=== PATIENT | female | born 1985 | race Caucasian/White ===

== ENCOUNTER 2016-09-25 19:32 | Emergency (ER) | payer BC ==
[2013-01-01 16:57] VITALS: BMI 41.6
== END 2016-09-25 21:05 | disposition home or self-care (01) ==
LOC: D.ER 19:32
DX: T36.0X5A Adverse effect of penicillins, initial encounter (principal); Y92.019 Unspecified place in single-family (private) house as the place of occurrence of the external cause; H66.92 Otitis media, unspecified, left ear; F41.9 Anxiety disorder, unspecified; F17.200 Nicotine dependence, unspecified, uncomplicated

== ENCOUNTER 2016-11-21 21:05 | Emergency (ER) | payer BC | END 2016-11-22 00:15 | disposition home or self-care (01) | LOC: D.ER 21:05 | DX: G51.0 Bell's palsy (principal); F41.9 Anxiety disorder, unspecified; F17.200 Nicotine dependence, unspecified, uncomplicated ==

== ENCOUNTER 2017-01-30 12:09 | Emergency (ER) | payer BC ==
[2013-01-01 16:57] VITALS: BMI 41.6
== END 2017-01-30 14:26 | disposition home or self-care (01) ==
LOC: D.ER 12:09
DX: M54.5 Low back pain (principal); S39.012A Strain of muscle, fascia and tendon of lower back, initial encounter; W18.30XA Fall on same level, unspecified, initial encounter; M62.830 Muscle spasm of back

== ENCOUNTER → 2017-02-03 12:22 | Outpatient (CLI) | payer BC ==
[2013-01-01 16:57] VITALS: BMI 41.6
== END | disposition home or self-care (01) ==
LOC: D.CT 12:22
DX: R10.9 Unspecified abdominal pain (principal)

== ENCOUNTER 2017-02-25 19:55 | Emergency (ER) | payer BC ==
[2013-01-01 16:57] VITALS: BMI 41.6
== END 2017-02-25 22:21 | disposition home or self-care (01) ==
LOC: D.ER 19:55
DX: S16.1XXA Strain of muscle, fascia and tendon at neck level, initial encounter (principal); X58.XXXA Exposure to other specified factors, initial encounter; Y93.89 Activity, other specified; Y92.89 Other specified places as the place of occurrence of the external cause; M62.838 Other muscle spasm

== ENCOUNTER → 2017-03-23 16:12 | Outpatient (CLI) | payer BC ==
[2013-01-01 16:57] VITALS: BMI 41.6
== END | disposition home or self-care (01) ==
LOC: D.MRI 08:30
DX: M54.2 Cervicalgia (principal)

== ENCOUNTER → 2017-05-27 16:25 | Outpatient (CLI) | payer BC ==
[2013-01-01 16:57] VITALS: BMI 41.6
== END | disposition home or self-care (01) ==
LOC: D.CT 05-26 16:00
DX: R10.9 Unspecified abdominal pain (principal)

== ENCOUNTER 2017-07-09 12:57 | Emergency (ER) | payer BC ==
[2013-01-01 16:57] VITALS: BMI 41.6
[2017-07-09 14:15] LABS: APTT 26.7 SECONDS (22.8-39.4); INR 0.97 (0.85-1.17); PROTIME 12.7 SECONDS (11.6-15.0)
[2017-07-09 15:35] LABS: BASOPHILS 0.9 % (0-2); EOSINOPHILS 1.5 % (0-7); HEMATOCRIT 44.2 % (36.0-48.0); HEMOGLOBIN 14.6 g/dL (12-16); IMMATURE GRANULOCYTES 0.2 % (0-5); LYMPHOCYTES 26.6 % (15-50); MCH 30.2 pg (26.0-34.0); MCV 91.3 fL (80.0-100.0); MEAN PLATELET VOLUME 11.5 fL (7.4-10.4); MONOCYTES 7.5 % (2-11); NEUTROPHILS 63.3 % (40-80); PLATELET COUNT 294 10x3/uL (130-400); RBC 4.84 10x6/uL (4.00-5.40); RDW 14.3 % (11.5-14.5); WBC 5.8 10x3/uL (4.8-10.8)
[2017-07-09 15:44] LABS: ALBUMIN 3.9 g/dL (3.4-5.0); ANION GAP 11.3 mmol/L (8-16); BILIRUBIN - TOTAL 0.13 mg/dL (0.2-1.3); CALCIUM 8.6 mg/dL (8.5-10.1); CARBON DIOXIDE 26.5 mmol/L (21.0-32.0); CREATININE - SERUM 1.1 mg/dL (0.6-1.3); POTASSIUM - SERUM 3.8 mmol/L (3.5-5.1); PROTEIN - SERUM 8.3 g/dL (6.4-8.2)
== END 2017-07-09 16:49 | disposition home or self-care (01) ==
LOC: D.ER 12:57
PROVIDERS: Family Medicine; Nurse Practitioner Family
DX: M79.662 Pain in left lower leg (principal); Z86.718 Personal history of other venous thrombosis and embolism

== ENCOUNTER → 2017-08-30 13:39 | Outpatient (CLI) | payer BC ==
[2013-01-01 16:57] VITALS: BMI 41.6
== END | disposition home or self-care (01) ==
LOC: D.US 13:39
DX: E04.9 Nontoxic goiter, unspecified (principal)

== ENCOUNTER 2017-09-27 19:02 | Emergency (ER) | payer BC ==
[2013-01-01 16:57] VITALS: BMI 41.6
== END 2017-09-27 21:25 | disposition home or self-care (01) ==
LOC: D.ER 19:02
DX: S27.818A Other injury of esophagus (thoracic part), initial encounter (principal); X58.XXXA Exposure to other specified factors, initial encounter; Y93.89 Activity, other specified; Y92.019 Unspecified place in single-family (private) house as the place of occurrence of the external cause; F17.200 Nicotine dependence, unspecified, uncomplicated

== ENCOUNTER 2017-11-06 22:04 | Emergency (ER) | payer BC ==
[2013-01-01 16:57] VITALS: BMI 41.6
[2017-11-06 22:41] LABS: BASOPHILS 0.3 % (0-2); EOSINOPHILS 1.8 % (0-7); HEMOGLOBIN 13.4 g/dL (12-16); IMMATURE GRANULOCYTES 0.3 % (0-5); LYMPHOCYTES 32.5 % (15-50); MCH 29.5 pg (26.0-34.0); MCHC 33.5 g/dL (31.0-37.0); MCV 88.1 fL (80.0-100.0); MEAN PLATELET VOLUME 10.3 fL (7.4-10.4); MONOCYTES 4.6 % (2-11); NEUTROPHILS 60.5 % (40-80); PLATELET COUNT 277 10x3/uL (130-400); RBC 4.54 10x6/uL (4.00-5.40); RDW 15.1 % (11.5-14.5); WBC 10.8 10x3/uL (4.8-10.8)
[2017-11-06 22:49] LABS: APPEARANCE HAZY (CLEAR); BACTERIA NONE SEEN /hpf (NONE SEEN); BILIRUBIN NEGATIVE (NEGATIVE); COLOR YELLOW (YELLOW); GLUCOSE NEGATIVE (NEGATIVE); KETONE NEGATIVE (NEGATIVE); NITRITE NEGATIVE (NEGATIVE); PROTEIN NEGATIVE (NEGATIVE); RED CELLS - URINE 25-50 /hpf (0-5); SPECIFIC GRAVITY 1.015 (1.005-1.020); UROBILINOGEN NORMAL (NORMAL); WHITE CELLS - URINE 0-5 /hpf (0-5)
[2017-11-06 23:04] LABS: ALBUMIN 3.4 g/dL (3.4-5.0); ALKALINE PHOSPHATASE 77 U/L (46-116); ALT (SGPT) 32 U/L (10-68); AMYLASE - SERUM 81 U/L (25-115); BILIRUBIN - TOTAL 0.09 mg/dL (0.2-1.3); CALC OSMOLALITY 284 mosm/kg (275-300); CALCIUM 7.7 mg/dL (8.5-10.1); CARBON DIOXIDE 25.9 mmol/L (21.0-32.0); CHLORIDE - SERUM 105 mmol/L (98-107); CREATINE KINASE 72 UL (21-215); CREATININE - SERUM 1.1 mg/dL (0.6-1.3); GLUCOSE 125 mg/dL (74-106); LIPASE 206 U/L (73-393); POTASSIUM - SERUM 3.5 mmol/L (3.5-5.1); PROTEIN - SERUM 7.2 g/dL (6.4-8.2); SODIUM 142 mmol/L (136-145); TROPONIN-I < 0.017 ng/mL (0.000-0.060); UREA NITROGEN 14 mg/dL (7-18); eGFR NON AFRICAN AMERICAN 60 mL/min (90-120)
== END 2017-11-06 23:30 | disposition home or self-care (01) ==
LOC: D.ER 22:04
PROVIDERS: Nurse Practitioner Family
DX: K21.9 Gastro-esophageal reflux disease without esophagitis (principal); R10.13 Epigastric pain

== ENCOUNTER 2017-11-07 16:38 | Emergency (ER) | payer BC ==
[2013-01-01 16:57] VITALS: BMI 41.6
[2017-11-07 18:28] LABS: ALBUMIN 3.8 g/dL (3.4-5.0); ALKALINE PHOSPHATASE 79 U/L (46-116); ALT (SGPT) 30 U/L (10-68); BILIRUBIN - TOTAL 0.26 mg/dL (0.2-1.3); CALC OSMOLALITY 279 mosm/kg (275-300); CARBON DIOXIDE 24.8 mmol/L (21.0-32.0); CHLORIDE - SERUM 103 mmol/L (98-107); CREATININE - SERUM 1.1 mg/dL (0.6-1.3); GLUCOSE 86 mg/dL (74-106); POTASSIUM - SERUM 3.7 mmol/L (3.5-5.1); PROTEIN - SERUM 7.7 g/dL (6.4-8.2); SODIUM 141 mmol/L (136-145); UREA NITROGEN 12 mg/dL (7-18); eGFR NON AFRICAN AMERICAN 60 mL/min (90-120)
[2017-11-07 18:29] LABS: BASOPHILS 0.4 % (0-2); EOSINOPHILS 0.4 % (0-7); HEMATOCRIT 41.4 % (36.0-48.0); HEMOGLOBIN 13.7 g/dL (12-16); IMMATURE GRANULOCYTES 0.2 % (0-5); LYMPHOCYTES 23.2 % (15-50); MCH 29.1 pg (26.0-34.0); MCHC 33.1 g/dL (31.0-37.0); MCV 87.9 fL (80.0-100.0); MEAN PLATELET VOLUME 10.9 fL (7.4-10.4); MONOCYTES 4.3 % (2-11); NEUTROPHILS 71.5 % (40-80); PLATELET COUNT 233 10x3/uL (130-400); RBC 4.71 10x6/uL (4.00-5.40); RDW 14.9 % (11.5-14.5); WBC 9.8 10x3/uL (4.8-10.8)
[2017-11-07 18:31] LABS: CREATINE KINASE 97 UL (21-215)
[2017-11-07 18:33] LABS: TROPONIN-I < 0.017 ng/mL (0.000-0.060)
== END 2017-11-07 20:24 | disposition home or self-care (01) ==
LOC: D.ER 16:38
PROVIDERS: Family Medicine
DX: R06.02 Shortness of breath (principal); R07.9 Chest pain, unspecified; K21.9 Gastro-esophageal reflux disease without esophagitis

== ENCOUNTER → 2017-12-27 12:21 | Outpatient (CLI) | payer BC ==
[2013-01-01 16:57] VITALS: BMI 41.6
== END | disposition home or self-care (01) ==
LOC: D.US 12:21
DX: I82.409 Acute embolism and thrombosis of unspecified deep veins of unspecified lower extremity (principal)

== ENCOUNTER → 2018-01-02 16:01 | Outpatient (CLI) | payer OTHER ==
[2013-01-01 16:57] VITALS: BMI 41.6
== END | disposition home or self-care (01) ==
LOC: D.CT 16:00
DX: S99.911A Unspecified injury of right ankle, initial encounter (principal); X58.XXXA Exposure to other specified factors, initial encounter; Y93.9 Activity, unspecified; Y92.9 Unspecified place or not applicable

== ENCOUNTER 2018-03-11 11:36 | Emergency (ER) | payer BC ==
[~2018-03-11] VITALS: Ht 154.9 cm; Wt 106.8 kg
[2018-03-11 12:11] VITALS: BP 135/99; Ht 154.9 cm; Wt 106.8 kg
== END 2018-03-11 14:04 | disposition left against medical advice (07) ==
LOC: D.ER 11:36
DX: R20.2 Paresthesia of skin (principal)

== ENCOUNTER → 2018-03-14 12:23 | Outpatient (CLI) | payer BC ==
[2018-03-11 12:11] VITALS: BMI 44.5
== END | disposition home or self-care (01) ==
LOC: D.CT 12:23
DX: R07.9 Chest pain, unspecified (principal)

== ENCOUNTER → 2018-08-18 08:34 | Outpatient (CLI) | payer BC ==
[2018-03-11 12:11] VITALS: BMI 44.5
[~2018-08-18 08:34] MED LIST: CIPRO500 MG PO; FLOMAX0.4 MG PO; ULTRAM50 MG PO; ZOFRAN4 MG PO
== END | disposition home or self-care (01) ==
LOC: D.RAD 08:34
DX: K21.9 Gastro-esophageal reflux disease without esophagitis (principal)

== ENCOUNTER 2018-08-21 17:49 | Emergency (ER) | payer BC ==
[~2018-08-21] VITALS: Ht 154.9 cm; Wt 95.3 kg
[2018-08-21 17:52] VITALS: Ht 154.9 cm; Wt 95.3 kg
[2018-08-21 18:41] LABS: BASOPHILS 0.4 % (0-2); EOSINOPHILS 1.2 % (0-7); HEMATOCRIT 40.1 % (36.0-48.0); HEMOGLOBIN 13.4 g/dL (12-16); IMMATURE GRANULOCYTES 0.3 % (0-5); LYMPHOCYTES 27.1 % (15-50); MCH 27.9 pg (26.0-34.0); MCHC 33.4 g/dL (31.0-37.0); MCV 83.4 fL (80.0-100.0); MEAN PLATELET VOLUME 10.1 fL (7.4-10.4); MONOCYTES 4.5 % (2-11); NEUTROPHILS 66.5 % (40-80); RBC 4.81 10x6/uL (4.00-5.40); RDW 16.3 % (11.5-14.5); WBC 11.9 10x3/uL (4.8-10.8)
[2018-08-21 18:47] LABS: PLATELET COUNT 357 10x3/uL (130-400)
[2018-08-21 18:48] LABS: APPEARANCE CLEAR (CLEAR); COLOR YELLOW (YELLOW); SPECIFIC GRAVITY 1.015 (1.005-1.020)
[2018-08-21 18:49] LABS: BILIRUBIN NEGATIVE (NEGATIVE); EPITHELIAL CELLS 0-5 /hpf (0-5); GLUCOSE NEGATIVE (NEGATIVE); KETONE NEGATIVE (NEGATIVE); NITRITE NEGATIVE (NEGATIVE); PROTEIN NEGATIVE (NEGATIVE); RED CELLS - URINE 0-5 /hpf (0-5); UROBILINOGEN NORMAL (NORMAL); WHITE CELLS - URINE 0-5 /hpf (0-5)
[2018-08-21 19:01] LABS: ANION GAP 16.8 mmol/L (8-16); BILIRUBIN - TOTAL 0.18 mg/dL (0.2-1.3); CALCIUM 8.8 mg/dL (8.5-10.1); CARBON DIOXIDE 26.9 mmol/L (21.0-32.0); CREATININE - SERUM 1.2 mg/dL (0.6-1.3); POTASSIUM - SERUM 3.7 mmol/L (3.5-5.1); PROTEIN - SERUM 8.5 g/dL (6.4-8.2)
[2018-08-21] MEDS ORDERED: ZOFRAN4 MG PO (20:34)
[2018-08-21] MEDS ORDERED: FLOMAX0.4 MG PO (20:34)
[2018-08-21] MEDS ORDERED: ULTRAM50 MG PO (20:34)
[2018-08-21] MEDS ORDERED: CIPRO500 MG PO (20:34)
[2018-08-21 20:48] VITALS: BP 121/69
== END 2018-08-21 20:48 | disposition home or self-care (01) ==
LOC: D.ER 17:49
PROVIDERS: Family Medicine
DX: N23 Unspecified renal colic (principal); R31.9 Hematuria, unspecified

== ENCOUNTER 2019-01-09 16:04 | Emergency (ER) | payer BC ==
[~2019-01-09] VITALS: Ht 154.9 cm; Wt 112.5 kg
[2019-01-09 16:20] VITALS: Ht 154.9 cm; Wt 112.5 kg
[2019-01-09] MEDS ORDERED: BACTRIM 400-801 TAB PO (16:27)
[2019-01-09 17:01] LABS: BASOPHILS 0.5 % (0-2); EOSINOPHILS 1.4 % (0-7); HEMATOCRIT 31.6 % (36.0-48.0); HEMOGLOBIN 10.4 g/dL (12-16); IMMATURE GRANULOCYTES 0.2 % (0-5); LYMPHOCYTES 26.3 % (15-50); MCH 25.6 pg (26.0-34.0); MCHC 32.9 g/dL (31.0-37.0); MCV 77.6 fL (80.0-100.0); MEAN PLATELET VOLUME 9.7 fL (7.4-10.4); MONOCYTES 5.3 % (2-11); NEUTROPHILS 66.3 % (40-80); PLATELET COUNT 345 10x3/uL (130-400); RBC 4.07 10x6/uL (4.00-5.40); RDW 16.6 % (11.5-14.5); WBC 10.2 10x3/uL (4.8-10.8)
[2019-01-09 17:14] LABS: ALBUMIN 3.6 g/dL (3.4-5.0); ANION GAP 13.4 mmol/L (8-16); BILIRUBIN - TOTAL 0.13 mg/dL (0.2-1.3); CALCIUM 8.4 mg/dL (8.5-10.1); CARBON DIOXIDE 26.5 mmol/L (21.0-32.0); CREATININE - SERUM 1.1 mg/dL (0.6-1.3); POTASSIUM - SERUM 3.9 mmol/L (3.5-5.1); PROTEIN - SERUM 7.4 g/dL (6.4-8.2)
[2019-01-09 17:18] LABS: APPEARANCE CLEAR (CLEAR); BILIRUBIN NEGATIVE (NEGATIVE); COLOR YELLOW (YELLOW); GLUCOSE NEGATIVE (NEGATIVE); HCG URINE NEGATIVE (NEGATIVE); KETONE NEGATIVE (NEGATIVE); NITRITE NEGATIVE (NEGATIVE); PROTEIN NEGATIVE (NEGATIVE); SPECIFIC GRAVITY 1.015 (1.005-1.020); UROBILINOGEN NORMAL (NORMAL)
[2019-01-09 17:19] LABS: BACTERIA FEW /hpf (NONE SEEN); EPITHELIAL CELLS 0-5 /hpf (0-5); RED CELLS - URINE OCC /hpf (0-5); WHITE CELLS - URINE OCC /hpf (0-5)
[2019-01-09] MEDS ORDERED: ZOFRAN ODT4 MG/UDTAB PO (19:03)
[2019-01-09] MEDS ORDERED: VOLTAREN75 MG PO (19:03)
[2019-01-09] MEDS ORDERED: TYLENOL W/CODEI1 TAB PO (19:03)
[2019-01-09 19:42] VITALS: BP 104/62
== END 2019-01-09 19:43 | disposition home or self-care (01) ==
LOC: D.ER 16:04
PROVIDERS: Family Medicine
DX: K63.89 Other specified diseases of intestine (principal); R11.2 Nausea with vomiting, unspecified